=== PATIENT | male | born 1995 | race Two or more races ===

== ENCOUNTER 2018-02-25 15:05 | Emergency (ER) | payer OTHER ==
[2018-02-25] MEDS ORDERED: LIDOCAINE 1% MDV 20ML VIAL As Ordered (18:22)
[2018-02-25] MEDS: cefTRIAXone SOD 1 GM VIAL (J0696) IM (18:38)
[2018-02-25] MEDS: AZITHROMYCIN 250 MG TAB PO (18:38)
== END 2018-02-25 19:05 | disposition home or self-care (01) ==
LOC: M ED 15:05
DX: J18.1 Lobar pneumonia, unspecified organism (principal); S70.11XA Contusion of right thigh, initial encounter; W20.8XXA Other cause of strike by thrown, projected or falling object, initial encounter; Y92.59 Other trade areas as the place of occurrence of the external cause; Y99.0 Civilian activity done for income or pay; F17.200 Nicotine dependence, unspecified, uncomplicated
CPT/HCPCS: J0696